=== PATIENT | male | born 2000 | race Caucasian/White ===

== ENCOUNTER 2023-10-21 09:34 | Inpatient (IN) | payer BC, SELFPAY ==
[~2023-10-21] VITALS: Ht 180.3 cm; Wt 66.7 kg
[~2023-10-21 09:34] MED LIST: ABIL1TAB11 PO; BUSP10TA PO; SERT50TA29 PO; TRAZ-252 PO
[2023-10-21 10:11] LABS: HEMATOCRIT 45.3 % (42.0-52.0); HEMOGLOBIN 15.6 g/dl (13.5-17.5); MEAN CORPUSCULAR HEMOGLOBIN 30.4 pg (27.0-33.0); MEAN CORPUSCULAR HGB CONC 34.4 g/dl (32.0-36.5); MEAN CORPUSCULAR VOLUME 88.3 fl (80.0-96.0); PLATELET COUNT, AUTOMATED 192 10^3/uL (150-450); RED BLOOD COUNT 5.13 10^6/uL (4.30-6.10); WHITE BLOOD COUNT 3.9 10^3/uL (4.0-10.0)
[2023-10-21 10:40] LABS: ETHYL ALCOHOL (ETHANOL) < 0.003 % (0.000-0.010)
[2023-10-21 10:42] LABS: ALBUMIN 4.3 G/DL (3.2-5.2); ALKALINE PHOSPHATASE 67 U/L (46-116); ALT/SGPT 24 U/L (7.0-40); AST/SGOT 30 U/L (<34); BILIRUBIN,DIRECT 0.3 MG/DL (<0.4); BILIRUBIN,TOTAL 0.9 MG/DL (0.3-1.2); BLOOD UREA NITROGEN 12 MG/DL (9-23); CALCIUM LEVEL 9.2 MG/DL (8.5-10.1); CARBON DIOXIDE LEVEL 26 MMOL/L (20-31); CHLORIDE LEVEL 107 MMOL/L (98-107); CREATININE FOR GFR 0.71 MG/DL (0.70-1.30); GLUCOSE, FASTING 95 MG/DL (60-100); POTASSIUM SERUM 3.6 MMOL/L (3.5-5.1); SALICYLATE LEVEL < 3.0 MG/DL (<30); SODIUM LEVEL 140 MMOL/L (136-145); TOTAL PROTEIN 7.5 G/DL (5.7-8.2)
[2023-10-21 11:41] LABS: AMPHETAMINES LEVEL URINE NEGATIVE (NEGATIVE); BARBITURATES URINE NEGATIVE (NEGATIVE); BENZODIAZEPINES URINE NEGATIVE (NEGATIVE); COCAINE METABOLITE URINE NEGATIVE (NEGATIVE)
[2023-10-21 11:42] LABS: METHADONE URINE NEGATIVE (NEGATIVE); OPIATES URINE NEGATIVE (NEGATIVE); PHENCYCLIDINE URINE NEGATIVE (NEGATIVE)
[2023-10-21 11:44] LABS: CANNABINOIDS URINE POSITIVE (NEGATIVE)
[2023-10-21] MEDS ORDERED: MED REC IN PROGRESS XX SCH (12:45)
[2023-10-21] MEDS ORDERED: MAALOX 30 ML SUSP *UDC PO PRN (13:20)
[2023-10-21] MEDS ORDERED: ACETAMINOPHEN TAB 650MG DOSE (2X325MG) PO PRN (13:20)
[2023-10-21] MEDS ORDERED: diphenhydrAMINE 25MG CAP PO PRN (13:20)
[2023-10-21] MEDS ORDERED: MOM 30ML SUSPENSION UDC PO PRN (13:20)
[2023-10-21] MEDS ORDERED: traZODone 50 MG TAB PO PRN (13:20)
[2023-10-21] MEDS ORDERED: IBUPROFEN 400MG TAB PO PRN (13:20)
[2023-10-21] MEDS ORDERED: LAMO25TA4 PO (13:45)
[2023-10-21] MEDS ORDERED: SERT25TA21 PO (13:45)
[2023-10-21] MEDS ORDERED: SERT-141 PO (13:45)
[2023-10-21] MEDS ORDERED: ARIP1TAB6 PO (13:45)
[2023-10-21] MEDS ORDERED: HYDR1CAP25 PO (13:45)
[2023-10-21] MEDS ORDERED: HOME MED LIST COMPLETE! XX SCH (13:45)
[2023-10-21] MEDS ORDERED: BUSP15TA47 PO (13:45)
[2023-10-21 15:55] VITALS: BP 126/69; TEMP 98.6; O2SAT 100
[2023-10-22 06:19] VITALS: BP 141/63; TEMP 97.7; O2SAT 99
[2023-10-22] MEDS ORDERED: busPIRone 5 MG TAB PO PRN (09:00)
[2023-10-22] MEDS: SERTRALINE HCL 50 MG TAB PO SCH (14:10)
[2023-10-22 18:21] VITALS: BP 144/86; TEMP 98.5; O2SAT 99
[2023-10-22] MEDS: OLANZapine 5 MG TAB PO SCH (21:40)
[2023-10-23 06:23] VITALS: BP 101/70; TEMP 97.8; O2SAT 97
[2023-10-23] MEDS: ESCITALOPRAM OXALATE 10 MG TAB (LEXAPRO) PO SCH (12:26)
[2023-10-24 06:11] VITALS: BP 109/57; TEMP 98.1; O2SAT 97
[2023-10-24] MEDS ORDERED: BENZTROPINE 0.5 MG TAB PO PRN (08:40)
[2023-10-24 16:24] VITALS: BP_SYST 126; BP_SYST 134; BP_DIAS 70; BP_DIAS 82; TEMP 97.3; TEMP 98; O2SAT 100; O2SAT 99
[2023-10-24] MEDS: OLANZapine 10 MG TAB PO SCH (20:06)
[2023-10-25 06:13] VITALS: BP 133/64; TEMP 98; O2SAT 96
[2023-10-25 14:22] VITALS: BP 149/89; TEMP 97.4; O2SAT 96
[2023-10-26 06:17] VITALS: BP 125/72; TEMP 98.7; O2SAT 96
[2023-10-26 16:00] VITALS: BP 136/83; TEMP 98; O2SAT 100
[2023-10-27 06:19] VITALS: BP 155/82; TEMP 98.1; O2SAT 98
[2023-10-27] MEDS ORDERED: BENZ0.5T2 PO (08:08)
[2023-10-27] MEDS ORDERED: HYDR-3363 PO (08:08)
[2023-10-27] MEDS ORDERED: LEXA1TAB PO (08:08)
[2023-10-27] MEDS ORDERED: BUSP5TA PO (08:08)
[2023-10-27] MEDS ORDERED: OLAN1TAB20 PO (08:08)
== END 2023-10-27 10:48 | disposition home or self-care (01) | DRG 751 ==
LOC: M ED 09:34 → M ED INP 13:16 → M PSY 16:02
PROVIDERS: ADMIT Student in an Organized Health Care Education/Training Program; ATTEND Student in an Organized Health Care Education/Training Program
DX: F33.1 Major depressive disorder, recurrent, moderate (principal); F41.9 Anxiety disorder, unspecified; F40.11 Social phobia, generalized; R45.851 Suicidal ideations; Z91.52 Personal history of nonsuicidal self-harm; Z81.8 Family history of other mental and behavioral disorders; Z81.1 Family history of alcohol abuse and dependence; Z11.52 Encounter for screening for COVID-19; Z79.899 Other long term (current) drug therapy

== ENCOUNTER 2024-09-24 18:34 | Inpatient (IN) | payer BC ==
[~2024-09-24] VITALS: Ht 180.3 cm; Wt 58.2 kg
[~2024-09-24 18:34] MED LIST changes: +ARIP1TAB6 PO; +BENZ0.5T2 PO; +BUSP15TA47 PO; +BUSP5TA PO; +HYDR-3363 PO; +HYDR1CAP25 PO; +LAMO25TA4 PO; +LEXA1TAB PO; +OLAN1TAB20 PO; +SERT-141 PO; +SERT25TA21 PO
[2024-09-24 19:07] LABS: HEMATOCRIT 45.7 % (42.0-52.0); HEMOGLOBIN 16.1 g/dl (13.5-17.5); MEAN CORPUSCULAR HEMOGLOBIN 30.3 pg (27.0-33.0); MEAN CORPUSCULAR HGB CONC 35.2 g/dl (32.0-36.5); MEAN CORPUSCULAR VOLUME 86.1 fl (80.0-96.0); PLATELET COUNT, AUTOMATED 201 10^3/uL (150-450); RED BLOOD COUNT 5.31 10^6/uL (4.30-6.10); WHITE BLOOD COUNT 6.1 10^3/uL (4.0-10.0)
[2024-09-24 19:30] LABS: AMPHETAMINES LEVEL URINE NEGATIVE (NEGATIVE); BARBITURATES URINE NEGATIVE (NEGATIVE); BENZODIAZEPINES URINE NEGATIVE (NEGATIVE); COCAINE METABOLITE URINE NEGATIVE (NEGATIVE); METHADONE URINE NEGATIVE (NEGATIVE); OPIATES URINE NEGATIVE (NEGATIVE); PHENCYCLIDINE URINE NEGATIVE (NEGATIVE)
[2024-09-24 19:32] LABS: ETHYL ALCOHOL (ETHANOL) 0.005 % (0.000-0.010)
[2024-09-24 19:33] LABS: SALICYLATE LEVEL < 3.0 MG/DL (<30)
[2024-09-24 19:34] LABS: ALBUMIN 5.1 G/DL (3.2-5.2); ALKALINE PHOSPHATASE 56 U/L (40-129); ALT/SGPT 17 U/L (7.0-40); AST/SGOT 26 U/L (<34); BILIRUBIN,DIRECT 0.4 MG/DL (<0.4); BILIRUBIN,TOTAL 1.2 MG/DL (0.3-1.2); BLOOD UREA NITROGEN 6 MG/DL (9-23); CALCIUM LEVEL 9.8 MG/DL (8.5-10.1); CARBON DIOXIDE LEVEL 24 MMOL/L (20-31); CHLORIDE LEVEL 103 MMOL/L (98-107); CREATININE FOR GFR 0.77 MG/DL (0.70-1.30); GLOMERULAR FILTRATION RATE > 60.0 (>60); GLUCOSE, FASTING 98 MG/DL (60-100); POTASSIUM SERUM 3.7 MMOL/L (3.5-5.1); SODIUM LEVEL 139 MMOL/L (136-145); TOTAL PROTEIN 8.1 G/DL (5.7-8.2)
[2024-09-24 19:36] LABS: THYROID STIMULATING HORMONE 1.934 uIU/ML (0.55-4.78)
[2024-09-24 19:40] LABS: CANNABINOIDS URINE POSITIVE (NEGATIVE)
[2024-09-24] MEDS ORDERED: DULO1CAP4 PO (20:48)
[2024-09-24] MEDS ORDERED: HOME MED LIST COMPLETE! XX SCH (20:50)
[2024-09-24] MEDS ORDERED: diphenhydrAMINE 25MG CAP PO PRN (21:00)
[2024-09-24] MEDS ORDERED: MOM 30ML SUSPENSION UDC PO PRN (21:00)
[2024-09-24] MEDS ORDERED: MAALOX 30 ML SUSP *UDC PO PRN (21:00)
[2024-09-24] MEDS ORDERED: IBUPROFEN 400MG TAB PO PRN (21:00)
[2024-09-24 23:22] VITALS: BP 121/71; TEMP 98; O2SAT 100
[2024-09-25 06:52] VITALS: BP 123/69; TEMP 97.6; O2SAT 99
[2024-09-25] MEDS: ESCITALOPRAM OXALATE 5MG TABLET (LEXAPRO) PO SCH (15:07)
[2024-09-25 15:27] LABS: APPEARANCE, URINE CLEAR (CLEAR); BACTERIA, URINE AUTO NEGATIVE (NEGATIVE); BILIRUBIN, URINE AUTO NEGATIVE (NEGATIVE); BLOOD, URINE BLOOD NEGATIVE (NEGATIVE); COLOR, URINE YELLOW (YELLOW); GLUCOSE, URINE (UA) AUTO NEGATIVE (NEGATIVE); KETONE, URINE AUTO 1+ mg/dL (NEGATIVE); LEUKOCYTE ESTERASE, URINE AUTO NEGATIVE (NEGATIVE); MUCUS, URINE SMALL (NEGATIVE); NITRITE, URINE AUTO NEGATIVE (NEGATIVE); PROTEIN, URINE AUTO NEGATIVE (NEGATIVE); RBC, URINE AUTO 0 /HPF (0-3); SPECIFIC GRAVITY URINE AUTO 1.012 (1.002-1.035); SQUAMOUS EPITHELIAL CELL UR AU 0 /HPF (0-6); UROBILINOGEN, URINE AUTO 0.2 mg/dL (0.0-2.0); WBC, URINE AUTO 1 /HPF (0-3)
[2024-09-25 15:55] VITALS: BP 135/75; TEMP 97.9; O2SAT 100
[2024-09-25] MEDS: ACETAMINOPHEN 325 MG TAB PO PRN (16:15)
[2024-09-25] MEDS: traZODone 50 MG TAB PO PRN (20:40)
[2024-09-25] MEDS: OLANZapine 5 MG TAB PO SCH (20:40)
[2024-09-26 06:58] VITALS: BP 118/68; TEMP 97.4; O2SAT 99
[2024-09-26 15:13] VITALS: BP 132/79; TEMP 97.8; O2SAT 97
[2024-09-27 06:40] VITALS: BP 122/68; TEMP 97; O2SAT 97
[2024-09-27] MEDS: ESCITALOPRAM OXALATE 10 MG TAB (LEXAPRO) PO SCH (08:36)
[2024-09-27 16:01] VITALS: BP 133/59; TEMP 97.1; O2SAT 97
[2024-09-28 06:21] VITALS: BP 128/72; TEMP 97.3; O2SAT 99
[2024-09-28] MEDS ORDERED: OLAN1TAB16 PO (08:06)
== END 2024-09-28 11:42 | disposition home or self-care (01) | DRG 753 ==
LOC: M ED 18:34 → M ED INP 20:58 → M PSY 23:02
PROVIDERS: ADMIT Psychiatry & Neurology Neurology; ATTEND Psychiatry & Neurology Psychiatry
DX: F31.62 Bipolar disorder, current episode mixed, moderate (principal); F41.9 Anxiety disorder, unspecified; F43.10 Post-traumatic stress disorder, unspecified; F60.6 Avoidant personality disorder; F12.10 Cannabis abuse, uncomplicated; Z81.8 Family history of other mental and behavioral disorders; Z81.1 Family history of alcohol abuse and dependence; Z62.810 Personal history of physical and sexual abuse in childhood; Z62.811 Personal history of psychological abuse in childhood; Z91.52 Personal history of nonsuicidal self-harm